=== PATIENT | male | born 1950 | race Caucasian/White ===

== ENCOUNTER → 2016-08-17 | Outpatient (CLI) | payer OTHER ==
[~2016-08-17] MED LIST: FLONASE 0.05% N16 G1; SIMVASTATIN10 MG PO
--- NOTE | ~2016-08-17 | CT134 ---
[facility] A Service of [facility] RADIOLOGY TEXT RESULTS PATIENT: ERICA CR LOCATION: [facility] : 54 UNIT #: [id number] AGE: [address]: Ramu Peng MD SEX: M ORDER DR: [id number] [place] [id number] [facility] [place], [place] [address] [id number] O MR#: [id number] [facility] #: [id number] NAME: ERICA CR : 1950 SEX: M STUDY DATE/TIME: 08/17/2016 9:35 UNIT: [facility] ROOM: STUDY DESCRIPTION: CT Guide Attending Physician: Ramu Peng M.D. Referring Physician: Ramu Peng M.D. Ordering Physician: Ramu Peng M.D. Primary Care Physician: Gerald Galvan M.D. MEDICAL IMAGING REPORT This report is preliminary unless electronic signature is present EXAM CT-guided bone marrow biopsy INDICATION Neutropenia. TECHNIQUE This CT exam was performed with one or more of the following radiation dose reduction techniques: automatic exposure control, adjustment of mA and/or kV according to patient size, and iterative reconstruction. PROCEDURE The risks, benefits, and alternatives to the procedure were explained to the patient, and signed, informed consent was obtained. Patient was placed prone on the CT scanner gantry. A preliminary CT scan was performed through region of interest. An appropriate site overlying the left iliac vein was selected. Overlying skin was marked. The patient was prepped and draped in the usual sterile fashion. Time-out was performed as per protocol. Skin and subcutaneous tissues were anesthetized with buffered lidocaine and a bone marrow biopsy needle was advanced into the left iliac bone. Repeat CT scan confirmed appropriate position of the needle. At this point it was advanced into the left iliac bone. Bone marrow aspirate was obtained. The needle was advanced further into the bone marrow and the removed which yielded an adequate core sample. Manual pressure was then applied until hemostasis was obtained. Patient did tolerate the procedure well. He did receive conscious sedation consisting of 2 mg of Versed and 100 mcg of Fentanyl and continuous monitoring was provided for a total of 35 minutes by the IVR nurse. IMPRESSION Technically successful CT-guided bone marrow biopsy as noted above. CT was used during the procedure and permanent images were saved. [facility] A Service of [facility] RADIOLOGY TEXT RESULTS PATIENT: ERICA CR LOCATION: [facility] #: [id number] : [birth year] UNIT #: [id number] AGE: [address]: Ramu Peng MD SEX: M ORDER DR: Dictated by... Tena Carballo M.D. THIS IS AN ELECTRONICALLY VERIFIED REPORT Tena Carballo M.D. at 08/18/2016 1:16 PM SENAIT/niarv TD: 08/18/2016 08:09 JOB #: [id number] MEDICAL IMAGING REPORT Page 1 of 1 COPY
[2016-08-17 09:01] LABS: BASOPHIL% 0.4 % (0-2.5); EOSINOPHIL# 0.1 X10e3 (0-0.7); EOSINOPHIL% 2.3 % (0.0-7.0); HEMATOCRIT 39.4 % (38.0-50.0); HEMOGLOBIN 13.2 gm/dL (13.0-16.0); LYMPHOCYTE# 1.7 X10e3 (1.0-3.5); LYMPHOCYTE% 49.1 % (17.0-45.0); MEAN CORPUSCULAR HEMOGLOBIN 30.8 PG (28-34); MEAN CORPUSCULAR HGB CONC 33.5 g/dL (30-36); MEAN PLATELET VOLUME 7.6 FL (6.5-11.5); MONOCYTE# 0.1 X10e3 (0-1.0); MONOCYTE% 2.5 % (3.0-12.0); NEUTROPHIL# 1.5 X10e3 (1.5-7.1); NEUTROPHIL% 45.7 % (40-75); PLATELET COUNT 127 X10e3 (140-420); RED BLOOD COUNT 4.28 X10e (3.90-5.60); RED CELL DISTRIBUTION WIDTH 13.3 % (11.0-15.5); WHITE BLOOD COUNT 3.4 X10e3 (4.0-10.5)
[2016-08-17 09:06] LABS: DIFF IND NO
[2016-08-17 09:18] LABS: PARTIAL THROMBOPLASTIN TIME 23.6 SECONDS (23.5-31.3); PROTHROMBIN TIME (PATIENT) 10.7 SECONDS (9.6-11.5)
== END | disposition home or self-care (01) ==
LOC: CCAT 07:45
PROVIDERS: Internal Medicine Medical Oncology
DX: D75.89 Other specified diseases of blood and blood-forming organs (principal); D72.818 Other decreased white blood cell count
CPT/HCPCS: 38221; G0364; 77012; 85025; 85610; 85730; 88305; 88311; 88313; 99144; 99152; 99153; J2250; J3010

== ENCOUNTER → 2016-08-26 | Outpatient (CLI) | payer OTHER ==
--- NOTE | ~2016-08-26 | CT5 ---
[facility] A Service [facility] RADIOLOGY TEXT RESULTS PATIENT: ERICA CR LOCATION: [facility] : 54 UNIT #: [id number] AGE: [address]: Ramu Peng MD SEX: M ORDER DR: [id number] [facility] [address] [facility] [place], [place] [address] [id number] O MR#: [id number] [facility] #: [id number] NAME: ERICA CR : 1950 SEX: M STUDY DATE/TIME: 08/26/2016 11:11 UNIT: [facility] ROOM: STUDY DESCRIPTION: CT Abdomen W Cont Attending Physician: Ramu Peng M.D. Ordering Physician: Ramu Peng M.D. Primary Care Physician: Gerald Galvan M.D. MEDICAL IMAGING REPORT This report is preliminary unless electronic signature is present EXAM CT abdomen with contrast, 08/26/16, 1111 hours. CLINICAL HISTORY 66-year-old man with neutropenia, newly diagnosed leukemia. No acute abdominal complaints. Baseline exam. COMPARISON None. TECHNIQUE Dynamic helical CT images were obtained from the lung bases through the iliac crests. Oral and intravenous contrast was administered. Isovue-370 100 mL IV. Total exam DLP for the chest and abdomen study today is 920 mGy-cm. This CT exam was performed with one or more of the following radiation dose reduction techniques: automatic exposure control, adjustment of mA and/or kV according to patient size, and iterative reconstruction. FINDINGS The liver and spleen are normal. The pancreas, gallbladder, bile ducts and adrenal glands are normal. The kidneys enhance normally. There is no mass or stone. There is no retroperitoneal or mesenteric lymphadenopathy. The aorta is normal in caliber. The stomach is unopacified and poorly distended, but does appear normal. Visualized portions of the small bowel and colon are normal. IMPRESSION Normal CT abdomen performed with oral and intravenous contrast. There is no splenomegaly or adenopathy. [facility] A Service [facility] RADIOLOGY TEXT RESULTS PATIENT: ERICA CR LOCATION: [facility] : 54 UNIT #: [id number] AGE: [address]: Ramu Peng MD SEX: M ORDER DR: Dictated by... Mavis Abarca M.D. THIS IS AN ELECTRONICALLY VERIFIED REPORT Mavis Abarca M.D. at 08/27/2016 6:57 PM UDAY/kingsley TD: 08/26/2016 17:41 JOB #: [id number] MEDICAL IMAGING REPORT Page 1 of 1 COPY
--- NOTE | ~2016-08-26 | CT55 ---
[facility] A Service [facility] RADIOLOGY TEXT RESULTS PATIENT: ERICA CR LOCATION: [facility] : 54 UNIT #: [id number] AGE: [address]: Ramu Peng MD SEX: M ORDER DR: [id number] [id number] [facility]. [place], [place] [address] [id number] O MR#: [id number] [facility] #: [id number] NAME: ERICA CR : 1950 SEX: M STUDY DATE/TIME: 08/26/2016 11:11 UNIT: [facility] ROOM: STUDY DESCRIPTION: CT Chest W Con Attending Physician: Ramu Peng M.D. Ordering Physician: Ramu Peng M.D. Primary Care Physician: Gerald Galvan M.D. MEDICAL IMAGING REPORT This report is preliminary unless electronic signature is present EXAM CT chest with contrast, 08/26/16, 1111 hours. CLINICAL HISTORY 66-year-old man with neutropenia, newly diagnosed leukemia for baseline CT. No current chest complaints. COMPARISON None. TECHNIQUE Dynamic helical CT images were obtained from the thoracic inlet through the adrenal glands. Sagittal and coronal reconstructions were performed. Contrast was Isovue-370 100 mL IV. Total exam DLP is 920 mGy-cm for the chest and abdomen study today. This CT exam was performed with one or more of the following radiation dose reduction techniques: automatic exposure control, adjustment of mA and/or kV according to patient size, and iterative reconstruction. FINDINGS Images through the thoracic inlet demonstrate no thyroid lesion or adenopathy. Images through the chest demonstrate fusiform ascending aortic aneurysm measuring 4.3 cm with no dissection. The transverse aortic arch and descending thoracic aorta are normal in caliber. There is no pathologic mediastinal, hilar or axillary adenopathy. There is no pericardial or pleural fluid. There are small calcified subcarinal nodes. The lungs are well expanded and clear. There is no nodule or infiltrate. IMPRESSION 1. There is no lymphadenopathy or evidence of infection in the chest. [facility] A Service of [facility] RADIOLOGY TEXT RESULTS PATIENT: ERICA CR LOCATION: [facility] : 54 UNIT #: [id number] AGE: [address]: Ramu Peng MD SEX: M ORDER DR: 2. There is a fusiform ascending aortic aneurysm measuring up to 4.3 cm. There is no dissection. Transverse aortic arch and descending thoracic aorta are normal in caliber. Dictated by... Mavis Abarca M.D. THIS IS AN ELECTRONICALLY VERIFIED REPORT Mavis Abarca M.D. at 08/27/2016 6:57 PM UDAY/kingsley TD: 08/26/2016 17:36 JOB #: [id number] MEDICAL IMAGING REPORT Page 1 of 1 COPY
[2016-08-26 17:27] LABS: POC - CREATININE 0.67 mg/dL (0.64-1.27); POC - GFR >60.0 mL/min (>60)
== END | disposition home or self-care (01) ==
LOC: CCAT 09:52
PROVIDERS: Internal Medicine Medical Oncology
DX: D72.818 Other decreased white blood cell count (principal); I71.2 Thoracic aortic aneurysm, without rupture
CPT/HCPCS: 71260; 74160; 82565; Q9967